=== PATIENT | male | born 1935 | race Caucasian/White ===

== ENCOUNTER → 2020-08-20 10:29 | Outpatient (BNVA) | payer MEDICARE, SELFPAY | PROVIDERS: PCP Internal Medicine; Visit Provider Urology | DX: N31.9 Neuromuscular dysfunction of bladder, unspecified (principal); N39.0 Urinary tract infection, site not specified | CPT/HCPCS: 51705; 51710; 99212 ==

== ENCOUNTER → 2020-11-19 15:43 | Outpatient (BNVA) | payer MEDICARE, SELFPAY | PROVIDERS: Visit Provider Urology | CPT/HCPCS: Q3014 ==

== ENCOUNTER → 2022-10-07 10:07 | Outpatient (BNVA) | payer MEDICARE, SELFPAY | PROVIDERS: Visit Provider Nurse Practitioner Family | DX: N31.9 Neuromuscular dysfunction of bladder, unspecified (principal); Z93.59 Other cystostomy status | CPT/HCPCS: 99212 ==

== ENCOUNTER 2023-04-12 09:10 | Outpatient (AMB) | payer MEDICARE, SELFPAY ==
--- NOTE | 2023-04-12 09:25 | A.OFFVIS_ITS ---
Intake Intake Visit Reasons: 6m follow up Intake Note: Patient is present for follow up of neuromuscular dysfunction of bladder Urology Medications: D/C finasteride, tamsulosin, methenamine, vitamin c (patient's stated that he is still taking finasteride) Blood Thinner: none Publications Inspector Required: No Accompanied by: Spouse Allergies No Known Allergies [No Known Allergies*] Allergy (Verified 04/12/23 09:50) Medication List - Last Reconciled 04/12/23 by DAKOTA Joshi ascorbate calcium (vitamin C) 500 mg PO DAILY 90 days colchicine (gout) 0.6 mg PO BID diltiazem HCl mg PO levetiracetam 750 mg PO BID methenamine hippurate 1 g PO DAILY 90 days metoprolol succinate ER 50 mg PO BID povidone-iodine 10% 1 appl topical DAILY PRN rivaroxaban (Xarelto) 10 mg PO DAILY tamsulosin 0.4 mg PO DAILY HPI HPI Comments History of Present Illness Details Gt is a 87-year-old male patient who was accompanied by his at today's visit. He is being seen today for follow-up of his neurogenic bladder. Patient has suprapubic tube for his neurogenic bladder. When asked he reports noting mild redness/irritation to SPT site. In assessment of SPT site today very mild erythema present surrounding SPT. When asked he denies any UTI like symptoms at this time. When asked he reports to be doing and feeling well. Patient reports recent SPT tube change late last week with [facility] nurse [facility]. Call to [facility] [phone]. Spoke with nursing refining supervisor who relate a message to [facility] patient's VNA nurse to continue to monitor for signs and symptoms of infection. Discussed cleansing site with Betadine. Discussed utilizing split drain sponge to help keep area dry. When asked he denies foul smelling urine, flank pain, fever, and or chills. When asked he reports compliance with 0.4 mg of Flomax, methenamine, and vitamin-C daily. He denies having had any urinary tract infections since his last office visit. He offers no issues or concerns at this time. Neurogenic bladder SPT tube for neurogenic bladder ? Current visit is for further evaluation of, lower urinary tract symptoms, predominate obstructive symptoms ? - failed voiding trial x2. Past voiding trial December 2018 ? - has SPT changes with VNA ? Current treatment includes 02/02 SPT placed - laser procedure unable to be completed secondary to hematuria. ? Prostate Symptom Score 5/ , Moderate (9-19), Bother 4. ? Symptoms include for week 12/03 , incomplete emptying, weak stream, nocturia (>2), and are progressing - 2 weeks prior to hospital evaluation. ? Associated conditions? CAD? No ? CVA? No ? diabetes? No ? elevated PSA? No ? erectile dysfunction? No ? hematuria? No ? renal insufficiency? No ? urge incontinence? No ? urinary retention? No ? urinary tract infection? No ? psychiatric diagnosis? No PFSH Medical History H/O urinary retention Benign prostatic hyperplasia with lower urinary tract symptoms Feeling of incomplete bladder emptying Weak urinary stream Surgical History History of surgery Review of Systems Const All systems reviewed & are unremarkable except as noted in HPI and below Reports as per HPI Eyes Reports no additional complaints ENT Reports no additional complaints Card Reports no additional complaints Resp Reports no additional complaints GI Reports no additional complaints Reports as per HPI Musc Reports no additional complaints Neuro Reports no additional complaints Psych Reports no additional complaints Endo Reports no additional complaints Jadiel/Lymph Reports no additional complaints Aller/Immun Reports no additional complaints Physical Exam Const General: cooperative, healthy appearing, comfortable, no acute distress, well developed, alert and awake Orientation/consciousness: patient oriented x3 Limitations: no limitations HEENT Head: Yes normal to inspection, Yes normocephalic and Yes atraumatic Ears: hearing grossly normal bilaterally Eyes General: appearance normal, both eyes and all related structures Neck Neck: Yes normal visual inspection and Yes trachea midline Chest Chest palpation & inspection: normal inspection of the chest Resp Effort & Inspection: normal respiratory effort and able to speak in complete sentences Cardio Rate: regular rate GI Inspection: Yes normal to inspection (SPT insertion site appears reddened/irritated otherwise no drainage noted) and Yes other (SPT site with mild erythema around SPT site) General: Yes no CVA tenderness Back/Spine/Pelvis Back: no CVA tenderness Skin General skin exam: no rashes or lesions noted Neuro General: patient oriented x3 Extrem General: Yes normal to inspection Psych Appearance: grossly normal and well kempt Mental Status: mental status grossly normal Speech and movement: Normal speech and movement present and Clear speech present Affect: normal affect Attitude: cooperative Thought process: Normal thought process present Thought content: Normal thought content present Insight: Good insight present (Psych) Judgement: Good judgement present (Psych) Assessment & Plan Assessment & Plan (1) Chronic suprapubic catheter: Code(s): Z93.59 - Other cystostomy status (2) Complicated urinary tract infection: Comment: Methenamine suppression Code(s): N39.0 - Urinary tract infection, site not specified (3) Hypotonic neurogenic bladder: Code(s): N31.9 - Neuromuscular dysfunction of bladder, unspecified Plan Continue with monthly catheter changes with VNA services Continue Flomax, methenamine, and vitamin-C as discussed. Discussed utilizing Betadine and split drain sponge to assist with dryness to the area. Discussed calling office and or seeking medical treatment for any signs and symptoms of infection. Patient denies any bothersome urinary issues or concerns at this time. Follow-up in 6 months; if not sooner with any issues, concerns, and or questions. Patient Instructions: The patient had an opportunity to ask questions regarding the treatment plan. All questions were answered. Physical exam, labs, and imaging were discussed and reviewed in detail. As well as risks, benefits, and discussion of treatment choices. No major barriers to understanding were identified. The patient expressed understanding and agreement with the above treatment plan. The patient was made aware they should contact our office by phone for worsening of their current condition, the appearance of new symptoms, or with any questions or concerns. Compliance is encouraged with any medications and follow up testing that is ordered. It is a privilege to be allowed the opportunity to participate in? your urological care.? Again, if you have any questions or concerns If you have any questions or concerns please do not hesitate to contact me. The office is [phone]. This note is constructed using voice recognition software. While every effort has been made to ensure accuracy bundling machine operator errors may have been included. Yours sincerely, Agatha Monroy, SINGLE ENDING MACHINE OPERATOR-BC Coding Level of Care Code Est Pt Level 3 (88507) Diagnoses Chronic suprapubic catheter Z93.59 Complicated urinary tract infection N39.0 Hypotonic neurogenic bladder N31.9
== END 2023-04-12 09:53 | disposition home or self-care (01) ==
PROVIDERS: Visit Provider Nurse Practitioner Family
DX: Z93.59 Other cystostomy status (principal); N39.0 Urinary tract infection, site not specified; N31.9 Neuromuscular dysfunction of bladder, unspecified
CPT/HCPCS: 99213

== ENCOUNTER → 2023-04-12 09:10 | Outpatient (BNVA) | payer MEDICARE, SELFPAY | PROVIDERS: Visit Provider Nurse Practitioner Family | DX: N39.0 Urinary tract infection, site not specified (principal); N31.9 Neuromuscular dysfunction of bladder, unspecified; Z93.59 Other cystostomy status | CPT/HCPCS: 99212 ==

== ENCOUNTER 2023-10-12 09:33 | Outpatient (REF) | payer MEDICARE, SELFPAY | END 2023-10-12 09:34 | disposition home or self-care (01) | LOC: HO.LNP 09:33 | PROVIDERS: Visit Provider Nurse Practitioner Family | DX: N39.0 Urinary tract infection, site not specified (principal); N31.9 Neuromuscular dysfunction of bladder, unspecified; N48.29 Other inflammatory disorders of penis; Z93.59 Other cystostomy status; Z79.899 Other long term (current) drug therapy | CPT/HCPCS: 81003; 87086; 99212 ==

== ENCOUNTER 2023-10-12 09:33 | Outpatient (AMB) | payer MEDICARE, SELFPAY ==
--- NOTE | 2023-10-12 10:10 | A.OFFVIS_ITS ---
Intake Intake Visit Reasons: 6m follow up Intake Note: Patient is present for follow up of neuromuscular dysfunction of bladder Urology Medications: tamsulosin, methenamine, vitamin c Blood Thinner: none Director Group Sales Required: No Accompanied by: Spouse Allergies No Known Allergies [No Known Allergies*] Allergy (Verified 10/12/23 11:00) Medication List - Last Reconciled 10/12/23 by DAKOTA Joshi ascorbate calcium (vitamin C) 500 mg PO DAILY 90 days clotrimazole 1% 1 appl topical BID 4 weeks colchicine 0.6 mg PO BID diltiazem HCl mg PO levetiracetam 750 mg PO BID methenamine hippurate 1 g PO DAILY 90 days metoprolol succinate ER 50 mg PO BID povidone-iodine 10% 1 appl topical DAILY PRN rivaroxaban (Xarelto) 10 mg PO DAILY tamsulosin 0.4 mg PO DAILY HPI HPI Comments History of Present Illness Details Gt is a 88 year-old male patient who was accompanied by his at today's visit. He is being seen today for follow-up of his neurogenic bladder. Patient has suprapubic tube for his neurogenic bladder. When asked he reports noting mild redness/irritation to SPT site. During last office visit recommendations were made for Betadine to be applied however in discussion with the patient today he reports feeling initially this was helpful however feels within the last 2-3 months it has made his skin thicker. In assessment of the patient today it appears suprapubic site is mildly reddened with flaky/scaly patches. In discussion with the patient and his today it appears suprapubic tube had been changed to hypoallergenic [facility] that [facility] to [facility] to change SPT. However during last months SPT change there were hypoallergenic SPT tubes therefore it was replaced with a standard Nguyen catheter and he feels this has aggravated the suprapubic tube site. Discussed utilizing split drain sponge to help keep area dry. When asked he denies foul smelling urine, flank pain, fever, and or chills. Urine was obtained via SPT postive nitrates and leukocytes. When asked he reports compliance with 0.4 mg of Flomax, methenamine, and vitamin-C daily. He denies having had any urinary tract infections since his last office visit. He discusses being very active in his yard and home activities. He offers no issues or concerns at this time. Neurogenic bladder SPT tube for neurogenic bladder ? Current visit is for further evaluation of, lower urinary tract symptoms, predominate obstructive symptoms ? - failed voiding trial x2. Past voiding trial December 2018 ? - has SPT changes with VNA ? Current treatment includes 02/02 SPT placed - laser procedure unable to be completed secondary to hematuria. ? Prostate Symptom Score 12/03 , Moderate (9-19), Bother 4. ? Symptoms include for week 12/03 , incomplete emptying, weak stream, nocturia (>2), and are progressing - 2 weeks prior to hospital evaluation. ? Associated conditions? CAD? No ? CVA? No ? diabetes? No ? elevated PSA? No ? erectile dysfunction? No ? hematuria? No ? renal insufficiency? No ? urge incontinence? No ? urinary retention? No ? urinary tract infection? No ? psychiatric diagnosis? No PFSH Medical History H/O urinary retention Benign prostatic hyperplasia with lower urinary tract symptoms Feeling of incomplete bladder emptying Weak urinary stream Surgical History History of surgery Review of Systems Const All systems reviewed & are unremarkable except as noted in HPI and below Reports as per HPI Eyes Reports no additional complaints ENT Reports no additional complaints Card Reports no additional complaints Resp Reports no additional complaints GI Reports no additional complaints Reports as per HPI Musc Reports no additional complaints Neuro Reports no additional complaints Psych Reports no additional complaints Endo Reports no additional complaints Jadiel/Lymph Reports no additional complaints Aller/Immun Reports no additional complaints Physical Exam Const General: cooperative, healthy appearing, comfortable, no acute distress, well de veloped, alert and awake Orientation/consciousness: patient oriented x3 Limitations: no limitations HEENT Head: Yes normal to inspection, Yes normocephalic and Yes atraumatic Ears: hearing grossly normal bilaterally Eyes General: appearance normal, both eyes and all related structures Neck Neck: Yes normal visual inspection and Yes trachea midline Chest Chest palpation & inspection: normal inspection of the chest Resp Effort & Inspection: normal respiratory effort and able to speak in complete sentences Cardio Rate: regular rate GI Inspection: Yes normal to inspection (SPT insertion site appears reddened/irritated otherwise no drainage noted) and Yes other (SPT site with mild erythema around SPT site) General: Yes no CVA tenderness Back/Spine/Pelvis Back: no CVA tenderness Skin General skin exam: no rashes or lesions noted Neuro General: patient oriented x3 Extrem General: Yes normal to inspection Psych Appearance: grossly normal and well kempt Mental Status: mental status grossly normal Speech and movement: Normal speech and movement present and Clear speech present Affect: normal affect Attitude: cooperative Thought process: Normal thought process present Thought content: Normal thought content present Insight: Fair insight present (Psych) Judgement: Fair judgement present (Psych) Results AMB Urinalysis, Automated UA Leukoctes 500 Isela/uL Last Edit by [email or web address] on 10/12/23 10:25 UA Nitrite Positive Last Edit by [email or web address] Leonela on 10/12/23 10:25 UA Urobilinogen 0.2 mg/dL Last Edit by [email or web address] on 10/12/23 10:25 UA Protein 15 mg/dL Last Edit by [employer] on 10/12/23 10:25 UA pH 8.0 Last Edit by [email or web address] on 10/12/23 10:25 UA Blood 200 Sriram/uL Last Edit by [email or web address] on 10/12/23 10:25 UA Specific [place] 1.005 Last Edit by [email or web address] on 10/12/23 10:25 UA Ketone Negative Last Edit by [email or web address] on 10/12/23 10:25 UA Bilirubin 0 mg/dL Last Edit by [employer] on 10/12/23 10:25 UA Glucose 0 mg/dL Last Edit by [email or web address] on 10/12/23 10:25 Results Reviewed Results Reviewed: Laboratory Last Values Urine pH (Auto) 8.0 10/12/23 10:20 Specific [place] (Auto) 1.005 10/12/23 10:20 Urine Protein (Auto) 15 mg/dL 10/12/23 10:20 Glucose (UA)(Auto) 0 mg/dL 10/12/23 10:20 Urine Ketones (Auto) Negative 10/12/23 10:20 Urine Blood (Auto) 200 Sriram/uL 10/12/23 10:20 Urine Nitrite (Auto) Positive 10/12/23 10:20 Urine Bilirubin (Auto) 0 mg/dL 10/12/23 10:20 Urine Urobilinogen (Auto) 0.2 mg/dL 10/12/23 10:20 Leukocyte Esterase (Auto) 500 Isela/uL 10/12/23 10:20 Assessment & Plan Assessment & Plan (1) Chronic suprapubic catheter: Code(s): Z93.59 - Other cystostomy status (2) Complicated urinary tract infection: Comment: Methenamine suppression Code(s): N39.0 - Urinary tract infection, site not specified (3) Hypotonic neurogenic bladder: Code(s): N31.9 - Neuromuscular dysfunction of bladder, unspecified Plan In office urinalysis results reviewed with the patient today; as noted above; will send for urine culture; Will await results for potential treatment When asked patient denies any UTI like symptoms Continue with monthly catheter changes with VNA services Continue Flomax, methenamine, and vitamin-C as discussed. Start clotrimazole as discussed and prescribed. Discussed calling office and or seeking medical treatment for any signs and symptoms of infection. Information provided for VNA nursing for catheter changes as well as treatment for SPT site. Patient denies any bothersome urinary issues or concerns at this time. Follow-up in 6 months; if not sooner with any issues, concerns, and or questions. Orders: Orders AMB Urinalysis Automated Today Z13.9 - Encounter for screening, unspecified Urine Culture Today N39.0 - Urinary tract infection, site not specified Medications: New clotrimazole 1% 1 appl topical BID 4 weeks 28 grams 0RF N48.29 - Other inflammatory disorders of penis Patient Instructions: The patient had an opportunity to ask questions regarding the treatment plan. All questions were answered. Physical exam, labs, and imaging were discussed and reviewed in detail. As well as risks, benefits, and discussion of treatment choices. No major barriers to understanding were identified. The patient expressed understanding and agreement with the above treatment plan. The patient was made aware they should contact our office by phone for worsening of their current condition, the appearance of new symptoms, or with any questions or concerns. Compliance is encouraged with any medications and follow up testing that is ordered. It is a privilege to be allowed the opportunity to participate in? your urological care.? Again, if you have any questions or concerns If you have any questions or concerns please do not hesitate to contact me. The office is [phone]. This note is constructed using voice recognition software. While every effort has been made to ensure accuracy client architect errors may have been included. Yours sincerely, DAKOTA Joshi Coding Level of Care Code Est Pt Level 4 (12194) Diagnoses Chronic suprapubic catheter Z93.59 Complicated urinary tract infection N39.0 Hypotonic neurogenic bladder N31.9
== END 2023-10-12 10:42 | disposition home or self-care (01) ==
LOC: HO.HUSH 09:33
PROVIDERS: Visit Provider Nurse Practitioner Family
DX: Z93.59 Other cystostomy status (principal); N39.0 Urinary tract infection, site not specified; N31.9 Neuromuscular dysfunction of bladder, unspecified
CPT/HCPCS: 99214

== ENCOUNTER 2024-06-06 14:49 | Outpatient (AMB) | payer MEDICARE, SELFPAY ==
--- NOTE | 2024-06-06 14:58 | A.OFFVIS_ITS ---
Intake Visit Reasons: 6m follow up Intake Note: Patient is present for follow up of neuromuscular dysfunction of bladder Urology Medications: tamsulosin, methenamine, vitamin c , clotrimazole cream Blood Thinner: none Him Director Required: No Accompanied by: Spouse Allergies No Known Allergies [No Known Allergies*] Allergy (Verified 06/06/24 15:51) Medication List - Last Reconciled 06/06/24 by DAKOTA Joshi ascorbate calcium (vitamin C) 500 mg PO DAILY 90 days clotrimazole 1% 1 appl topical BID 4 weeks colchicine 0.6 mg PO BID diltiazem HCl CD mg PO levetiracetam 750 mg PO BID methenamine hippurate 1 g PO DAILY 90 days metoprolol succinate ER 50 mg PO BID povidone-iodine 10% 1 appl topical DAILY PRN rivaroxaban (Xarelto) 10 mg PO DAILY tamsulosin 0.4 mg PO DAILY HPI Comments Details: Gt is a 89 year-old male patient who was accompanied by his at today's visit. He is being seen today for follow-up of his neurogenic bladder. Patient has suprapubic tube for his neurogenic bladder. In discussion with the patient today he reports to be doing and feeling well. reports noting over the last 2-3 weeks he has been having foul-smelling urine however he does not feel he can smell anything abnormal. He continues with suprapubic catheter changes with VNA services. He reports having followed up with Nephrology recently and being prescribed a cream that he feels has been helpful in the irritation noted around the suprapubic tube site. In assessment of the patient today suprapubic tube site appears very minimally irritated, no drainage or open areas noted. He otherwise denies any bothersome urinary issues or concerns. He denies flank pain, fever, and or chills. Urine was obtained via SPT postive nitrates and leukocytes. When asked he reports compliance with 0.4 mg of Flomax, methenamine, and vitamin-C daily. He denies having had any urinary tract infections since his last office visit. He discusses being very active in his yard and home activities. He offers no issues or concerns at this time. Neurogenic bladder SPT tube for neurogenic bladder ? Current visit is for further evaluation of, lower urinary tract symptoms, predominate obstructive symptoms ? - failed voiding trial x2. Past voiding trial December 2018 ? - has SPT changes with VNA ? Current treatment includes 02/02 SPT placed - laser procedure unable to be completed secondary to hematuria. ? Prostate Symptom Score 12/03 , Moderate (9-19), Bother 4. ? Symptoms include for week 12/03 , incomplete emptying, weak stream, nocturia (>2), and are progressing - 2 weeks prior to hospital evaluation. ? Associated conditions? CAD? No ? CVA? No ? diabetes? No ? elevated PSA? No ? erectile dysfunction? No ? hematuria? No ? renal insufficiency? No ? urge incontinence? No ? urinary retention? No ? urinary tract infection? No ? psychiatric diagnosis? No PFSH Medical History H/O urinary retention Benign prostatic hyperplasia with lower urinary tract symptoms Feeling of incomplete bladder emptying Weak urinary stream Surgical History History of surgery Review of Systems Const All systems reviewed & are unremarkable except as noted in HPI and below Reports as per HPI Eyes Reports no additional complaints ENT Reports no additional complaints Card Reports no additional complaints Resp Reports no additional complaints GI Reports no additional complaints Reports as per HPI Musc Reports no additional complaints Neuro Reports no additional complaints Psych Reports no additional complaints Endo Reports no additional complaints Jadiel/Lymph Reports no additional complaints Aller/Immun Reports no additional complaints Physical Exam Const General: cooperative, healthy appearing, comfortable, no acute distress, well developed, alert and awake Orientation/consciousness: patient oriented x3 Limitations: no limitations HEENT Head: Yes normal to inspection, Yes normocephalic and Yes atraumatic Ears: hearing grossly normal bilaterally Eyes General: appearance normal, both eyes and all related structures Neck Neck: Yes normal visual inspection and Yes trachea midline Chest Chest palpation & inspection: normal inspection of the chest Resp Effort & Inspection: normal respiratory effort and able to speak in complete sentences Cardio Rate: regular rate GI Inspection: Yes normal to inspection (SPT insertion site appears reddened/irritated otherwise no drainage noted) and Yes other (SPT site with mild erythema around SPT site) General: Yes no CVA tenderness Back/Spine/Pelvis Back: no CVA tenderness Skin General skin exam: no rashes or lesions noted Neuro General: patient oriented x3 Extrem General: Yes normal to inspection Psych Appearance: grossly normal and well kempt Mental Status: mental status grossly normal Speech and movement: Normal speech and movement present and Clear speech present Affect: normal affect Attitude: cooperative Thought process: Normal thought process present Thought content: Normal thought content present Insight: Fair insight present (Psych) Judgement: Fair judgement present (Psych) Assessment & Plan Assessment & Plan (1) Chronic suprapubic catheter: Code(s): Z93.59 - Other cystostomy status Category: Surgical (2) Complicated urinary tract infection: Comment: Methenamine suppression Code(s): N39.0 - Urinary tract infection, site not specified Category: Medical (3) Hypotonic neurogenic bladder: Code(s): N31.9 - Neuromuscular dysfunction of bladder, unspecified Category: Medical Plan In office urinalysis results reviewed with the patient today; as noted above; will send for urine culture. Start Cipro as discussed and prescribed. Continue with monthly catheter changes with VNA services Continue Flomax, methenamine, and vitamin-C as discussed; discussed holding methenamine while on Cipro. Discussed, educated, and stressed the importance of adequate hydration relation to recurrent urinary tract infections as well as overall health and well-being. Follow-up in 6 months; if not sooner with any issues, concerns, and or questions. Orders: Orders Urine Culture Today N39.0 - Urinary tract infection, site not specified Medications: New ciprofloxacin HCl 250 mg PO DAILY 7 tabs 0RF 7 days N32.81 - Overactive bladder Patient Instructions: The patient had an opportunity to ask questions regarding the treatment plan. All questions were answered. Physical exam, labs, and imaging were discussed and reviewed in detail. As well as risks, benefits, and discussion of treatment choices. No major barriers to understanding were identified. The patient expressed understanding and agreement with the above treatment plan. The patient was made aware they should contact our office by phone for worsening of their current condition, the appearance of new symptoms, or with any questions or concerns. Compliance is encouraged with any medications and follow up testing that is ordered. It is a privilege to be allowed the opportunity to participate in? your urological care.? Again, if you have any questions or concerns If you have any questions or concerns please do not hesitate to contact me. The office is [phone]. This note is constructed using voice recognition software. While every effort has been made to ensure accuracy pl sql developer errors may have been included. Yours sincerely, DAKOTA Joshi Coding Level of Care Code Est Pt Level 4 (65750) Complex EM visit Add On G2211 Diagnoses Chronic suprapubic catheter Z93.59 Complicated urinary tract infection N39.0 Hypotonic neurogenic bladder N31.9
== END 2024-06-06 15:33 | disposition home or self-care (01) ==
PROVIDERS: Visit Provider Nurse Practitioner Family
DX: Z93.59 Other cystostomy status (principal); N39.0 Urinary tract infection, site not specified; N31.9 Neuromuscular dysfunction of bladder, unspecified
CPT/HCPCS: 99214; G2211

== ENCOUNTER 2024-06-06 14:49 | Outpatient (REF) | payer MEDICARE, SELFPAY | END 2024-06-06 14:50 | disposition home or self-care (01) | LOC: HO.LNP 14:49 | PROVIDERS: Visit Provider Nurse Practitioner Family | DX: N39.0 Urinary tract infection, site not specified (principal); Z93.59 Other cystostomy status; N31.9 Neuromuscular dysfunction of bladder, unspecified; Z79.899 Other long term (current) drug therapy | CPT/HCPCS: 87086; 99212 ==

== ENCOUNTER 2024-12-05 08:07 | Outpatient (AMB) | payer MEDICARE, SELFPAY ==
--- NOTE | 2024-12-05 08:13 | A.OFFVIS_ITS ---
Intake Visit Reasons: 6m follow up Intake Note: Patient is present for follow up of neuromuscular dysfunction of bladder Urology Medications: tamsulosin, methenamine(unsure if taking), vitamin c , clotrimazole cream Blood Thinner: none [employer] Required: No Accompanied by: Spouse Allergies No Known Allergies [No Known Allergies*] Allergy (Verified 12/05/24 09:36) Medication List - Last Reconciled 12/05/24 by DAKOTA Joshi ascorbate calcium (vitamin C) 500 mg PO DAILY 90 days clotrimazole 1% 1 appl topical BID 4 weeks colchicine 0.6 mg PO BID diltiazem HCl CD mg PO levetiracetam 750 mg PO BID methenamine hippurate 1 g PO DAILY 90 days metoprolol succinate ER 50 mg PO BID povidone-iodine 10% 1 appl topical DAILY PRN rivaroxaban (Xarelto) 10 mg PO DAILY tamsulosin 0.4 mg PO DAILY HPI Comments Details: Gt is a 89 year-old male patient who was accompanied by his at today's visit. He is being seen today for follow-up of his neurogenic bladder. Patient has suprapubic tube for his neurogenic bladder. In discussion with the patient today he reports to be doing and feeling well. He denies having had any bothersome urinary issues or concerns since his last office visit here approximately 6 months ago. He reports compliance with Flomax, methenamine, and vitamin-C as prescribed. He does continue to apply, which resolved as needed to suprapubic tube site as at times he does experience fungal issues. He also reports noting foul-smelling urine however feels it improves when he increases his hydration however he finds this difficult as he spends a lot of time outside cutting wood. In assessment of the patient today suprapubic tube site appears very minimally irritated, no drainage or open areas noted. He otherwise denies any bothersome urinary issues or concerns. He denies flank pain, fever, and or chills. He denies having had any urinary tract infections since his last office visit. He discusses being very active in his yard and home activities. He offers no issues or concerns at this time. Neurogenic bladder SPT tube for neurogenic bladder ? Current visit is for further evaluation of, lower urinary tract symptoms, predominate obstructive symptoms ? - failed voiding trial x2. Past voiding trial December 2018 ? - has SPT changes with [facility] ? Current treatment includes 02/02 SPT placed - laser procedure unable to be completed secondary to hematuria. ? Prostate Symptom Score 12/03 , Moderate (9-19), Bother 4. ? Symptoms include for week 12/03 , incomplete emptying, weak stream, nocturia (>2), and are progressing - 2 weeks prior to hospital evaluation. ? Associated conditions? CAD? No ? CVA? No ? diabetes? No ? elevated PSA? No ? erectile dysfunction? No ? hematuria? No ? renal insufficiency? No ? urge incontinence? No ? urinary retention? No ? urinary tract infection? No ? psychiatric diagnosis? No PFSH Medical History H/O urinary retention Benign prostatic hyperplasia with lower urinary tract symptoms Feeling of incomplete bladder emptying Weak urinary stream Surgical History History of surgery Review of Systems Const All systems reviewed & are unremarkable except as noted in HPI and below Reports as per HPI Eyes Reports no additional complaints ENT Reports no additional complaints Card Reports no additional complaints Resp Reports no additional complaints GI Reports no additional complaints Reports as per HPI Musc Reports no additional complaints Neuro Reports no additional complaints Psych Reports no additional complaints Endo Reports no additional complaints Jadiel/Lymph Reports no additional complaints Aller/Immun Reports no additional complaints Physical Exam Const General: cooperative, healthy appearing, comfortable, no acute distress, well developed, alert and awake Orientation/consciousness: patient oriented x3 Limitations: no limitations HEENT Head: Yes normal to inspection, Yes normocephalic and Yes atraumatic Ears: hearing grossly normal bilaterally Eyes General: appearance normal, both eyes and all related structures Neck Neck: Yes normal visual inspection and Yes trachea midline Chest Chest palpation & inspection: normal inspection of the chest Resp Effort & Inspection: normal respiratory effort and able to speak in complete sentences Cardio Rate: regular rate GI Inspection: Yes normal to inspection (SPT insertion site appears reddened/irritated otherwise no drainage noted) and Yes other (SPT site with mild erythema around SPT site) General: Yes no CVA tenderness Back/Spine/Pelvis Back: no CVA tenderness Skin General skin exam: no rashes or lesions noted Neuro General: patient oriented x3 Extrem General: Yes normal to inspection Psych Appearance: grossly normal and well kempt Mental Status: mental status grossly normal Speech and movement: Normal speech and movement present and Clear speech present Affect: normal affect Attitude: cooperative Thought process: Normal thought process present Thought content: Normal thought content present Insight: Fair insight present (Psych) Judgement: Fair judgement present (Psych) Assessment & Plan Assessment & Plan (1) Chronic suprapubic catheter: Code(s): Z93.59 - Other cystostomy status Category: Surgical (2) Complicated urinary tract infection: Comment: Methenamine suppression Code(s): N39.0 - Urinary tract infection, site not specified Category: Medical (3) Hypotonic neurogenic bladder: Code(s): N31.9 - Neuromuscular dysfunction of bladder, unspecified Category: Medical Plan Continue with monthly catheter changes with [facility] services Continue Flomax, methenamine, and vitamin-C as discussed Discussed, educated, and stressed the importance of adequate hydration relation to recurrent urinary tract infections as well as overall health and well-being. He currently denies any bothersome urinary issues or concerns. We discussed importance of airing out spt site as patient typically utilizes dressing to the site. Follow-up in 6 months; if not sooner with any issues, concerns, and or questions. Patient Instructions: The patient had an opportunity to ask questions regarding the treatment plan. All questions were answered. Physical exam, labs, and imaging were discussed and reviewed in detail. As well as risks, benefits, and discussion of treatment choices. No major barriers to understanding were identified. The patient expressed understanding and agreement with the above treatment plan. The patient was made aware they should contact our office by phone for worsening of their current condition, the appearance of new symptoms, or with any questions or concerns. Compliance is encouraged with any medications and follow up testing that is ordered. It is a privilege to be allowed the opportunity to participate in? your urological care.? Again, if you have any questions or concerns If you have any questions or concerns please do not hesitate to contact me. The office is [phone]. This note is constructed using voice recognition software. While every effort has been made to ensure accuracy portfolio mgr errors may have been included. Yours sincerely, DAKOTA Joshi Coding Level of Care Code Est Pt Level 3 (57106) Complex EM visit Add On G2211 Diagnoses Chronic suprapubic catheter Z93.59 Complicated urinary tract infection N39.0 Hypotonic neurogenic bladder N31.9
== END 2024-12-05 08:57 | disposition home or self-care (01) ==
PROVIDERS: Visit Provider Nurse Practitioner Family
DX: Z93.59 Other cystostomy status (principal); N39.0 Urinary tract infection, site not specified; N31.9 Neuromuscular dysfunction of bladder, unspecified
CPT/HCPCS: 99213; G2211

== ENCOUNTER → 2024-12-05 08:07 | Outpatient (BNVA) | payer MEDICARE, SELFPAY | PROVIDERS: Visit Provider Nurse Practitioner Family | DX: N39.0 Urinary tract infection, site not specified (principal); N31.9 Neuromuscular dysfunction of bladder, unspecified; Z93.59 Other cystostomy status | CPT/HCPCS: 99212 ==

== ENCOUNTER 2025-01-16 08:57 | Outpatient (AMB) | payer MEDICARE, SELFPAY ==
--- OUTSIDE RECORDS SUMMARY | 2025-01-16 09:05 | XMS_ITS | Data Portability ---
Author Organization [facility], Main Office Address [address] [facility] [address] [place] [address] Care Team Providers Care Sign Carpenter Name Role Phone LAE ZAMUDIO ([place]) OTHER Assessment Encounter Date Assessment Date Assessment LastModified by Organization Details LastModified Time 10/01/2019 10/01/201909/26 wbc 11.56, hgb 11.6, hct 34.5, bun 35, creat 1.0 Not available 10/01/2019 09:24:25 10/05/2019 10/05/201909/30 wbc 10.10, hgb 12.1, hct 36.2, bun 24, creat 0.8 Not available 10/05/2019 10:52:07 Plan of Treatment Reminders Order Date Submit Date Provider Last Modified By Organization Details Last Modified Time Details Appointments None record ed. Lab None record ed. Referral None record ed. Procedures None record ed. Surgeries None record ed. Imaging None record ed. Medication Orders None record ed. Patient TargetsNo targets recorded. Patient InstructionsNo instructions recorded. Reason for Referral None Reported. Problems Name Problem SNOMED Code Status Onset Date Resolution Date Notes Provider Name and Address Organization Details Recorded Time Gout 71184073 Active 2019 Staci Garciaes null, [facility] 0 09:33:52 Atrial fibrillation 59665941 Active 2019 Staci Bladimir null, [facility] 0 09:33:53 Benign prostatic hyperplasia with outflow obstruction 221986263 Active 2019 Staci Bladimir null, [facility] 0 09:33:56 Essential hypertension 06034518 Active 2019 Staci Bladimir null, [facility] 0 09:33:57 History of pulmonary embolus 207663050 Active 2019 Staci Garrison [facility], [facility] 0 09:34:00 History of alcoholism 609255695 Active 2019 Kam Barksdale MD [address] [facility], [address], [place], [address], [facility] 0 13:33:27 Seizure disorder 987232873 Active 2019 Kam Barkdsale MD [address], [place], [address], [facility] 0 13:33:51 Problem Notes None recorded. Medical Equipment None Reported. Allergies No known drug allergies Medications Not known to be on any medication Vitals Date Recorded Systolic blood pressure Diastolic blood pressure Provider Name and Address Organization Details Last Updated DateTime 10/01/2019 152 mm[Hg] 86 mm[Hg] Staci Garrison [facility] 10/01/2019 09:24:58 Date Recorded Systolic blood pressure Diastolic blood pressure Provider Name and Address Organization Details Last Updated DateTime 10/02/2019 112 mm[Hg] 58 mm[Hg] Kam Barksdale MD [address] [facility], [address], [place], [address], [employer] 10/02/2019 13:52:02 Date Recorded Systolic blood pressure Diastolic blood pressure Provider Name and Address Organization Details Last Updated DateTime 10/05/2019 118 mm[Hg] 64 mm[Hg] Staci Garrison [facility] 10/05/2019 10:52:14 Social History Question Answer Notes LastModified by [employer] Details LastModified Time Tobacco Smoking Status Former Smoker Quit 60 years ago Not Available [employer] 05/13/2020 03:13:19 Do You Have An Advance Directive? Yes Full Code [id number] Information not available 05/13/2020 Sex: Unknown Functional Status Question Answer Note LastModified by [employer] Details LastModified Time What is your level of alcohol consumption? Heavy 2-3 shots/daily [id number] Information not available 05/13/2020 Mental Status None recorded. Family History Nothing Reported Notes:N/C Medical History No medical history recorded. Past Encounters Encounter ID Performer Location Encounter Start Date Encounter Closed Date Diagnosis/Indication Diagnosis SNOMED-CT Code Diagnosis ICD10 Code Diagnosis Note [id number] KULWINDER Burnett [address] [place] [address] 10/01/2019 09:06:44 10/05/2019 13:01:56 Gout 96095541 M10.09 Complete prednisone taperColch icine PRN Monitor for pain controlPT OT eval and treat Atrial fibrillation 4943 6004 I48.0 Diltiazem 120 mg BIDMetopro lol 50 mg BIDXarelto 20 mg dailyMonit or HR Benign pro static hyperplasia with outflow obstruction 054882737 N13.8 [address] in [address]Cont flomax, proscarUro logy f/u PRN Essential hypertension 83641593 I10 Meds as aboveLisin opril and norvasc d/c'd in hospital-r estart PRN Monitor bp History of pulmonary embolus 099991432 Z86.711 On xarelto as above [id number] MD LEA Cabrera [address] [place] [address] 10/02/2019 13:23:01 10/05/2019 13:44:36 Pyrexia of unknown origin 4294276 R50.81 Fever of unknown originwork up by ID negative for determinat ion of etiologyse e HPImonitor vital and respirator y status Gout 88519429 M10.09 see HPIactive goutnow improving on prednisone tapermonit or sxstill with gait instabilit y however pain much improvedex pect d/c within the next week Atrial fibrillation 4943 6004 I48.11 see HPIrapid a fib in hospitalfa iled cardiovers ionfollow cards recsnow oncardizem 120 mg bidmetopro lol 50 mg bidxarelto 20 mg qdmonitor for rate control Benign pro static hyperplasia with outflow obstruction 520181832 N40.1 chronic retention with supra-pubi c cath in placefloma x 0.4 mg qdmonitor for effect Acute cystitis 07351114 N30.00 question if this was source of above temp in patient with chronic supra pubic cathurolog y to eval prn Essential hypertension 34583901 I10 cardizem 120 mg bid metoprolol 50 mg bidmonitor be with med changes History of pulmonary embolus 460510212 Z86.711 maintained on xarelto at baselineco ntinue Seizure disorder 9895609 02 G40.A09 baseline absence seizuresad ded to pmhmonitor for activity Asthenia 69572577 R53.1 PT OT eval and treatmonit or fall risk [id number] Staci Garrison, [employer] LEA ZAMUDIO [address] [place] [address] 10/05/2019 10:40:24 10/09/2019 12:01:42 Pyrexia of unknown origin 1158480 R50.81 Fever of unknown originwork up by ID negative for determinat ion of etiologyno recurrent fever or respirator y sxs since admission here Acute cystitis 62546112 N30.00 question if this was source of above temp in patient with chronic supra pubic cathf/u urology prn Asthenia 20390292 R53.1 ambulating with walkerserv ices in place for discharge Gout 77387443 M10.09 see HPIactive goutnow improving on prednisone taperf/u with PCP Atrial fibrillation 4943 6004 I48.11 see HPIrapid a fib in hospitalfa [facility] cardiovers ionnow on cardizem 120 mg bidmetopro lol 50 mg bidxarelto 20 mg qdHR well controlled Benign pro static hyperplasia with outflow obstruction 426604828 N40.1 chronic retention with supra-pubi c cath in placefloma x 0.4 mg qd Essential hypertension 90995712 I10 cardizem 120 mg bid metoprolol 50 mg bidBP stable, f/u with PCP History of pulmonary embolus 237554783 Z86.711 maintained on xarelto at baseline Health Concerns Section Related Observation LastModified by Organization Detai ls LastModified Time None Recorded Concern Status LastModified by Organization Details LastModified Time None Recorded Advance Directives Directive Y: Full code Payers Insurance Date Sequence Insurance Name Policy Number Policy Smiley Covered Member ID Smiley Member ID Guarantor Name 10/05/2019 1 MEDICARE [place]: [employer] Gt Craig Jr [id number] Gt Craig Notes Date Note Type Note Provider Name and Address Organization Details Recorded Time 10/01/2019 text/html 84 yo male with hx of alcohol use, htn, absence seizures, PE/DVT, a. fib, gout, admit from hospital after presenting with fever. Infectious disease w/u unremarkable with negative flu, RSV, lyme, blood cultures, CXR and urine. Developed worsening left hand swelling, redness and pain of finger joints. Diagnosed with gout and started on prednisone taper. Hospitalization complicated by development of a. fib with RVR. Started on diltiazem gtt and oral metoprolol. Remains anticoagulated with xarelto. Cardioversion attempted 09/26 however this was unsuccessful. Admit for continued care and therapy. Staci landeros, [facility] 10/01/2019 10:16:03 10/02/2019 text/html Patient is an 84 yo male admit from hospital after presenting with fever. Workup by ID with no etiology determined. Patient was dx with gout treated with prednisone. Unable to r/o uti treated with Ab. Hospitalization complicated by rapid a fib, failed cardioversion. 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 eval by cards and initially treated with diltiazem drip and metoprolol. now on cardizem and toprol. Of note norvasc and lisinopril d/c'ed in hospital PM signficant forbph with chronic supra-pubic cath in placehx DVT PEa fibhtngoutseizure dx admit to facility for continued care and therapy Kam Barksdale MD [address] [place] [address], [address], [place], [address], [facility] [employer] 10/02/2019 13:57:17 10/05/2019 text/html 84 yo male seen in preparation for discharge home tomorrow. Patient here for rehab after hospitalization for fever. Workup by ID with no etiology determined. Patient was dx with gout treated with prednisone. Unable to r/o uti treated with Ab. Hospitalization complicated by rapid a fib, failed cardioversion. 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 eval by cards and initially treated with diltiazem drip and metoprolol. now on cardizem and toprol. Of note norvasc and lisinopril d/c'ed in hospital PM signficant for bph with chronic supra-pubic cath in place hx DVT PE a fib htn gout seizure dx Staci landeros [place] [facility] 10/05/2019 10:57:32
--- NOTE | 2025-01-16 09:13 | AM.OFFVISNUR ---
Intake Visit Reasons: cath eval Allergies No Known Allergies (No Known Allergies*) Allergy (Verified 12/05/24 09:36) Nursing Note Patient presents to office for catheter evaluation after calling in to report leakage from catheter. Patient reporting leaking is occurring around catheter insertion site and pressure will pop blue plug out even with emptying bladder every 2 hours. Patient catheter recently changed by [facility] 2 times in last week. First change was due to catheter being silicone and not comfortable, and second was back to normal silicone coated bourgeois that patient regularly uses. UA run- nitrate positive, pos leuks. Patient also recently treated for UTI inpatient at [facility]- treated with Bactrim x7 days. Reviewed with Agatha DUNCAN- will send urine for culture and request records for next steps. Records request sent and pt aware of plan, is agreeable at this time Results AMB Urinalysis, Automated UA Leukoctes 500 Isela/uL Last Edit by Kush Chavez LPN on 01/16/25 09:16 UA Nitrite Positive Last Edit by Kush Chavez LPN on 01/16/25 09:16 UA Urobilinogen 3.5 mg/dL Last Edit by Kush Chavez LPN on 01/16/25 09:16 UA Protein 0.1 mg/dL Last Edit by Kush Chavez LPN on 01/16/25 09:16 UA pH 6.0 Last Edit by Kush Chavez LPN on 01/16/25 09:16 UA Blood 200 Sriram/uL Last Edit by Kush Chavez LPN on 01/16/25 09:16 UA Specific Graff 6.0 Last Edit by Kush Chavez LPN on 01/16/25 09:16 UA Ketone Negative Last Edit by Kush Chavez LPN on 01/16/25 09:16 UA Bilirubin 0 mg/dL Last Edit by Kush Chavez LPN on 01/16/25 09:16 UA Glucose 0 mg/dL Last Edit by Kush Chavez LPN on 01/16/25 09:16 Assessment & Plan Assessment & Plan Orders: Orders AMB Urinalysis Automated Today N39.0 - Urinary tract infection, site not specified Urine Culture Today N39.0 - Urinary tract infection, site not specified Coding
== END 2025-01-16 09:34 | disposition home or self-care (01) ==
LOC: HO.HUSH 08:58
PROVIDERS: Visit Provider Nurse Practitioner Family
DX: N39.0 Urinary tract infection, site not specified (principal)